=== PATIENT | male | born 1945 | race Caucasian/White ===

== ENCOUNTER 2017-12-09 13:24 | Inpatient (IN) | payer MEDICARE, BC ==
[~2017-12-09] VITALS: Ht 167.6 cm; Wt 70.4 kg
[2017-12-09] VITALS (8 sets, daily range): BP systolic 115–216; BP diastolic 56–90; PULSE 46–58; RESP 16–18; TEMP 98.1–99.2; O2SAT 95–97
[~2017-12-09 13:24] MED LIST: CALC600T10 PO; CHEL50TA PO; FOSI10TA PO; HYDR10TA65 PO; LACT20SO4 PO; LEXA10TA PO; MAGN400T PO; PRAZ1CAP PO; RIFA550 PO; SPIR50TA21 PO; ZITH200S PO
[2017-12-09] MEDS ORDERED: ZINC50TA2 PO (13:53)
[2017-12-09] MEDS ORDERED: XIFA550T4 PO (13:53)
[2017-12-09] MEDS ORDERED: LISI10TA3 PO (13:53)
[2017-12-09] MEDS ORDERED: MAGO400T2 (13:53)
[2017-12-09] MEDS ORDERED: SODIUM CHLORIDE 0.9% FLUSH 10 ML FLUSH IVF PRN (14:15)
--- NOTE | 2017-12-09 14:31 | PD ---
HPI Chief Complaint: Hypertension Time Seen by Provider: 13:48 Travel History International Travel<30 days: No Contact w/Intl Traveler<30days: No Traveled to known affect area: No History of Present Illness HPI 72-year-old male with a history of hypertension, liver cirrhosis, hepatitis C status post treatment presents emergency department for evaluation of high blood pressure at the recommendation of the walk in clinic that he went to today. Patient states that he was walking in requesting "prazosin for nightmares" when they noticed high blood pressure and send to the emergency department today. Patient says he does have a history of high blood pressure however, did not take his morning dose of blood pressure medication until coming to the emergency department today. Says he feels 'woozy' and 'spacey'. Says he might feel dizzy, lightheaded. Says he has more blurred vision than normal. He denies headache, nausea, vomiting, diarrhea, chest pain, shortness breath, abdominal pain, leg pain. Denies ETOH use in 18yrs. Denies tobacco use although has a history of this. PFSH Past Medical History Cancer: No Cardiovascular Problems: Yes (HTN) Cirrhosis: Yes Diabetes: No (BORDERLINE) Endocrine: No Genitourinary: No Hepatitis: Yes (FORMERLY HAD HEP C) Hiatal Hernia: No Hypertension: Yes Immune Disorder: No Musculoskeletal: Yes (BACK FX) Neurologic: No Psychiatric: Yes (PT HAS NIGHTMARES ) Respiratory: No Thyroid Disease: No Influenza Vaccination: Yes Past Surgical History Surgical History: No Previous Surgery Abdominal Surgery: No AICD: No Body Medical Devices: NONE Cardiac Surgery: No Ear Surgery: No Endocrine Surgery: No Eye Surgery: No Genitourinary Surgery: No Joint Replacement: No Oral Surgery: No Pacemaker: No Thoracic Surgery: No Social History Alcohol Use: No (SOBER 18 YEARS) Tobacco Use: No Substance Use: No (HX POT) Allergies-Medications (Allergen,Severity, Reaction): Coded Allergies: acetaminophen (Unverified Allergy, Severe, LIVER/HEP C, 12/09/17) bupropion (Unverified Allergy, Severe, Confusion, 12/09/17) Reported Meds & Prescriptions Reported Meds & Active Scripts Active Reported Lisinopril 10 Mg Tab 10 Mg PO DAILY Zinc Gluconate 50 Mg Tab 50 Mg PO DAILY Magox 400 (Magnesium Oxide) 400 Mg Tablet Xifaxan (Rifaximin) 550 Mg Tab 550 Mg PO Q12HR Review of Systems Except as stated in HPI: all other systems reviewed are Neg Physical Exam Narrative GENERAL: WD, WN in NAD SKIN: Focused skin assessment warm/dry. HEAD: Atraumatic. Normocephalic. EYES: Pupils equal and round. No scleral icterus. No injection or drainage. ENT: No nasal bleeding or discharge. Mucous membranes pink and moist. NECK: Trachea midline. No JVD. CARDIOVASCULAR: Regular rate and rhythm. No murmur appreciated. RESPIRATORY: No accessory muscle use. Clear to auscultation. Breath sounds equal bilaterally. GASTROINTESTINAL: Abdomen soft, non-tender, nondistended. Hepatic and splenic margins not palpable. MUSCULOSKELETAL: No obvious deformities. No clubbing. No cyanosis. No edema. NEUROLOGICAL: Awake and alert. No obvious cranial nerve deficits. Motor grossly within normal limits. Normal speech. PSYCHIATRIC: Appropriate mood and affect; insight and judgment normal. Data Data Last Documented VS Vital Signs Date Time Temp Pulse Resp B/P (MAP) Pulse Ox O2 Delivery O2 Flow Rate FiO2 12/09/17 18:15 55 115/62 (79) 12/09/17 15:58 16 95 Room Air 12/09/17 13:26 99.2 Orders Orders Complete Blood Count With Diff (12/09/17 14:09) Comprehensive Metabolic Panel (12/09/17 14:09) Prothrombin Time / Inr (Pt) (12/09/17 14:09) Act Partial Throm Time (Ptt) (12/09/17 14:09) Ct Brain W/O Iv Contrast(Rout) (12/09/17 14:09) Ecg Monitoring (12/09/17 14:09) Iv Access Insert/Monitor (12/09/17 14:09) Sodium Chloride 0.9% Flush (Ns Flush) (12/09/17 14:15) Troponin I (12/09/17 14:09) Ammonia (12/09/17 14:09) Ckmb (Isoenzyme) Profile (12/09/17 14:09) Urinalysis - C+S If Indicated (12/09/17 14:11) Chest, Single Ap (12/09/17 ) CKMB (12/09/17 14:23) CKMB% (12/09/17 14:23) Mri Brain W&W/O Contrast (12/09/17 ) Nicardipine Inj (Cardene Inj) (12/09/17 16:00) Electrocardiogram (12/09/17 ) Admit Order (Ed Use Only) (12/09/17 19:30) Nicardipine Inj (Cardene Inj) (12/09/17 19:45) Lactulose Liq (Lactulose Liq) (12/09/17 21:00) Admit To Inpatient (12/09/17 ) Vital Signs (Adult) Q4H (12/09/17 19:45) Activity Oob With Assistance (12/09/17 19:45) Outside Machinist Supervisor / Telemetry .CONTINUOUS (12/09/17 19:45) Intake + Output BING.QSHIFT (12/09/17 19:45) Diet Heart Healthy (12/10/17 Breakfast) Sodium Chloride 0.9% Flush (Ns Flush) (12/09/17 19:45) Sodium Chloride 0.9% Flush (Ns Flush) (12/09/17 21:00) Ondansetron Inj (Zofran Inj) (12/09/17 19:45) Comprehensive Metabolic Panel (12/10/17 06:00) Complete Blood Count With Diff (12/10/17 06:00) Pharmacologic Contraindication (12/09/17 19:45) Oxycodone (Roxicodone) (12/09/17 19:45) Oxycodone (Roxicodone) (12/09/17 19:45) Docusate Sodium-Senna (Kasey-Colace) (12/09/17 21:00) Magnesium Hydroxide Liq (Milk Of Magnesi (12/09/17 19:45) Sennosides (Senokot) (12/09/17 19:45) Bisacodyl Supp (Dulcolax Supp) (12/09/17 19:45) Lactulose Liq (Lactulose Liq) (12/09/17 19:45) Inpatient Certification (12/09/17 ) Lisinopril (Prinivil) (12/10/17 09:00) Rifaximin (Xifaxan) (12/09/17 21:00) Labs Laboratory Tests Test 12/09/17 14:23 White Blood Count 5.7 TH/MM3 Red Blood Count 4.47 MIL/MM3 Hemoglobin 14.0 GM/DL Hematocrit 40.0 % Mean Corpuscular Volume 89.5 FL Mean Corpuscular Hemoglobin 31.3 PG Mean Corpuscular Hemoglobin Concent 35.0 % Red Cell Distribution Width 14.7 % Platelet Count 99 TH/MM3 Mean Platelet Volume 8.0 FL Neutrophils (%) (Auto) 70.0 % Lymphocytes (%) (Auto) 16.2 % Monocytes (%) (Auto) 6.4 % Eosinophils (%) (Auto) 7.1 % Basophils (%) (Auto) 0.3 % Neutrophils # (Auto) 4.0 TH/MM3 Lymphocytes # (Auto) 0.9 TH/MM3 Monocytes # (Auto) 0.4 TH/MM3 Eosinophils # (Auto) 0.4 TH/MM3 Basophils # (Auto) 0.0 TH/MM3 CBC Comment AUTO DIFF Differential Comment AUTO DIFF CONFIRMED Platelet Estimate LOW Platelet Morphology Comment NORMAL Ovalocytes 1+ Prothrombin Time 12.0 SEC Prothromb Time International Ratio 1.2 RATIO Activated Partial Thromboplast Time 27.6 SEC Urine Color YELLOW Urine Turbidity CLEAR Urine pH 5.5 Urine Specific [place] 1.020 Urine Protein TRACE mg/dL Urine Glucose (UA) NEG mg/dL Urine Ketones NEG mg/dL Urine Occult Blood SMALL Urine Nitrite NEG Urine Bilirubin NEG Urine Urobilinogen LESS THAN 2.0 MG/DL Urine Leukocyte Esterase NEG Urine RBC 1 /hpf Urine WBC LESS THAN 1 /hpf Urine Squamous Epithelial Cells <1 /hpf Urine Mucus FEW /lpf Microscopic Urinalysis Comment CULT NOT INDICATED Blood Urea Nitrogen 19 MG/DL Creatinine 0.96 MG/DL Random Glucose 188 MG/DL Total Protein 6.6 GM/DL Albumin 3.3 GM/DL Calcium Level 8.0 MG/DL Alkaline Phosphatase 124 U/L Aspartate Amino Transf (AST/SGOT) 55 U/L Alanine Aminotransferase (ALT/SGPT) 56 U/L Total Bilirubin 0.9 MG/DL Sodium Level 140 MEQ/L Potassium Level 3.7 MEQ/L Chloride Level 106 MEQ/L Carbon Dioxide Level 26.4 MEQ/L Anion Gap 8 MEQ/L Estimat Glomerular Filtration Rate 77 ML/MIN Ammonia 53 MCMOL/L Total Creatine Kinase 138 U/L Creatine Kinase MB 3.5 NG/ML Troponin I LESS THAN 0.02 NG/ML MDM Medical Decision Making Medical Screen Exam Complete: Yes Emergency Medical Condition: Yes Differential Diagnosis TIA, CVA, UTI, hepatic encephalopathy, accelerated hypertension, hypertensive emergency, hypertensive urgency Narrative Course 72y male presents to the ED at the request of the walk-in clinic for elevated blood pressure. Pt went to the walk in clinic to request medication to help him sleep. They apparently found that his blood pressure was very elevated, then sent him to the ED for eval. He complains of some blurred vision, feeling 'woozy '. Denies chest pain, headache, neck pain, shortness of breath, abdominal pain, back pain, leg pain. Vital signs demonstrate an elevated blood pressure at 216/88, HR 47-60, [id number] Physical exam findings demonstrate a 72-year-old male, well-developed, well- nourished in no acute distress. He has a mild resting tremor. No neuro deficits. Labs and imaging studies ordered. Cardene drip initiated with good response of the pressure. This drip was discontinued at a blood pressure of systolic of 115 (around 615p) CBC & BMP Diagram 12/09/17 14:23 Total Protein 6.6, Albumin 3.3 L, Calcium Level 8.0 L, Alkaline Phosphatase 124 H, Aspartate Amino Transf (AST/SGOT) 55 H, Alanine Aminotransferase (ALT/SGPT) 56, Total Bilirubin 0.9 Ammonia 53, cardiac enzymes negative Urinalysis noncontributory Last Impressions Head CT 12/09/17 1409 Signed Impressions: Service Date/Time: Saturday, December 09, 2017 14:51 - CONCLUSION: 1. Asymmetry of the occipital horns of the lateral ventricles with a slitlike configuration on the right. While this may represent some physiologic asymmetry, this area would be in the expected location of the optic tracts and may affect vision if there is in fact pathologic regional edema. As such, I would recommend an MRI of the brain with and without gadolinium for further characterization of this area. 2. Chronic appearing pansinusitis with relative sparing of the left frontal sinus. Mati Bergeron MD Chest X-Ray 12/09/17 0000 Signed Impressions: Service Date/Time: Saturday, December 09, 2017 14:26 - CONCLUSION: The lungs are clear. Michael Johnson MD Brain MRI 12/09/17 0000 Signed Impressions: Service Date/Time: Saturday, December 09, 2017 17:45 - CONCLUSION: Moderate periventricular white matter changes otherwise negative for acute process. There is no mass or edema. Moderate bilateral maxillary sinus disease. Ruben Carter MD FACR After evaluation, patient states that he does feel much better. Blood pressure has increased to systolic 137 after discontinuing cardene. Because of his blurred vision and hypertension, will admit for hypertensive urgency. Elevated ammonia, consider lactulose as he has a history of liver cirrhosis. Diagnosis Primary Impression: Hyperammonemia Additional Impression: Hypertensive urgency Admitting Information Admitting Physician Requests: Admit Condition: Stable Rosa Treviño Dec 09, 2017 14:31
[2017-12-09 15:07] LABS: BASOPHIL % 0.3 % (0.0-2.0); EOSINOPHIL # 0.4 TH/MM3 (0-0.4); EOSINOPHIL % 7.1 % (0.0-4.0); LYMPH % 16.2 % (9.0-44.0); LYMPHOCYTE # 0.9 TH/MM3 (1.0-4.8); MEAN CELL VOLUME 89.5 FL (80.0-100.0); MEAN CORPUSCULAR HEMOGLOBIN 31.3 PG (27.0-34.0); MONO % 6.4 % (0.0-8.0); MONOCYTE # 0.4 TH/MM3 (0-0.9); PLATELET COUNT 99 TH/MM3 (150-450); RED BLOOD COUNT 4.47 MIL/MM3 (4.50-5.90); RED CELL DISTRIBUTION WIDTH 14.7 % (11.6-17.2); WHITE BLOOD COUNT 5.7 TH/MM3 (4.0-11.0)
[2017-12-09 15:16] LABS: INTERNATIONAL NORMALIZED RATIO 1.2 RATIO
--- NOTE | 2017-12-09 15:18 | RADRPT ---
EXAM DATE/TIME: 12/09/2017 14:26 [facility] COMPARISON: CHEST PA & LAT, March 17, 2016, 15:24. INDICATIONS : Hypertension MEDICAL HISTORY : Hypertension. SURGICAL HISTORY : None. ENCOUNTER: Initial ACUITY: 1 day PAIN SCORE: 0/10 LOCATION: Bilateral chest FINDINGS: A single view of the chest demonstrates the lungs to be symmetrically aerated without evidence of mas s, infiltrate or effusion. The cardiomediastinal contours are unremarkable. Osseous structures are intact. CONCLUSION: The lungs are clear. Michael Johnson MD on December 09, 2017 at 15:15 Board Certified Radiologist. This report was verified electronically.
[2017-12-09 15:22] LABS: BILIRUBIN, URINE NEG (NEG); BLOOD, URINE SMALL (NEG); GLUCOSE,URINE NEG (NEG); KETONE, URINE NEG (NEG); MUCUS URINE FEW /lpf (OCC); NITRITE,URINE NEG (NEG); PH, URINE 5.5 (5.0-8.5); SQUAMOUS EPITHELIAL CELL URINE <1 /hpf (0-5); URINE COLOR YELLOW (YELLW/STRAW); URINE LEUKOCYTE ESTERASE NEG (NEG)
[2017-12-09 15:33] LABS: ALBUMIN 3.3 GM/DL (3.4-5.0); ALT (GPT) 56 U/L (12-78); AST (GOT) 55 U/L (15-37); BICARBONATE 26.4 MEQ/L (21.0-32.0); BLOOD UREA NITROGEN 19 MG/DL (7-18); CHLORIDE 106 MEQ/L (98-107); CREATININE 0.96 MG/DL (0.60-1.30); GLOMERULAR FILTRATION RATE 77 ML/MIN (>89); GLUCOSE,RANDOM 188 MG/DL (74-106); SODIUM (NA) 140 MEQ/L (136-145)
[2017-12-09 15:37] LABS: ALKALINE PHOSPHATASE 124 U/L (45-117); TOTAL BILIRUBIN ADULT 0.9 MG/DL (0.2-1.0); TOTAL PROTEIN 6.6 GM/DL (6.4-8.2); TROPONIN I LESS THAN 0.02 NG/ML (0.02-0.05)
--- NOTE | 2017-12-09 15:45 | RADRPT ---
EXAM DATE/TIME: 12/09/2017 14:51 [facility] COMPARISON: No previous studies available for comparison. INDICATIONS : Hypertension, blurred vision. RADIATION DOSE: 56.35 CTDIvol (mGy) MEDICAL HISTORY : Hypertension. SURGICAL HISTORY : None. ENCOUNTER: Initial ACUITY: 1 day PAIN SCALE: 0/10 LOCATION: cranial TECHNIQUE: Multiple contiguous axial images were obtained of the head. Using automated exposure control and adj ustment of the mA and/or kV according to patient size, radiation dose was kept as low as reasonably a chievable to obtain optimal diagnostic quality images. DICOM format image data is available electro nically for review and comparison. FINDINGS: CEREBRUM: Asymmetry of the occipital horns of the lateral ventricles with a slitlike ventricle on the right. N o evidence of midline shift, mass lesion, hemorrhage or acute infarction. No extra-axial fluid colle ctions are seen. POSTERIOR FOSSA: The cerebellum and brainstem are intact. The 4th ventricle is midline. The cerebellopontine angle i s unremarkable. EXTRACRANIAL: The visualized portion of the orbits is intact. Pansinusitis with relative sparing of the left fronta l. SKULL: The calvaria is intact. No evidence of skull fracture. CONCLUSION: 1. Asymmetry of the occipital horns of the lateral ventricles with a slitlike configuration on the ri ght. While this may represent some physiologic asymmetry, this area would be in the expected location of the optic tracts and may affect vision if there is in fact pathologic regional edema. As such, I would recommend an MRI of the brain with and without gadolinium for further characterization of this area. 2. Chronic appearing pansinusitis with relative sparing of the left frontal sinus. Mati Bergeron MD on December 09, 2017 at 15:36 Board Certified Radiologist. This report was verified electronically.
[2017-12-09] MEDS ORDERED: niCARdipine INJ 25 MG in SODIUM CHLOR 0.9% 250 ML INJ 240 ML IV PRN ×2 (16:00→19:45)
[2017-12-09 16:12] LABS: OVALOCYTES 1+ (NORMAL)
--- NOTE | 2017-12-09 19:02 | PD ---
Physical Exam Date Seen by Provider: Dec 09, 2017 Time Seen by Provider: 12:50 Narrative I, Dr. De Souza, have reviewed the advance practice practitioner's documentation and am in agreement, met with the patient face to face, made the diagnosis, and the medical decision making was done by me. *My assessment and Findings: Patient seen and evaluated PA, please see PA note for further details. He is here with dizziness, fairly elevated blood pressures. He had tried to take his own blood pressure medication at home before he came in. Patient is initiated on IV blood pressure control in the ER. Laboratory Tests Test 12/09/17 14:23 Red Blood Count 4.47 MIL/MM3 (4.50-5.90) Platelet Count 99 TH/MM3 (150-450) Eosinophils (%) (Auto) 7.1 % (0.0-4.0) Lymphocytes # (Auto) 0.9 TH/MM3 (1.0-4.8) Platelet Estimate LOW (NORMAL) Ovalocytes 1+ (NORMAL) Prothrombin Time 12.0 SEC (9.8-11.6) Urine Occult Blood SMALL (NEG) Urine Mucus FEW /lpf (OCC) Blood Urea Nitrogen 19 MG/DL (7-18) Random Glucose 188 MG/DL (74-106) Albumin 3.3 GM/DL (3.4-5.0) Calcium Level 8.0 MG/DL (8.5-10.1) Alkaline Phosphatase 124 U/L (45-117) Aspartate Amino Transf (AST/SGOT) 55 U/L (15-37) Estimat Glomerular Filtration Rate 77 ML/MIN (>89) Ammonia 53 MCMOL/L (11-32) Troponin I LESS THAN 0.02 NG/ML Last [address] 12/09/17 1409 Signed Impressions: Service Date/Time: Saturday, December 09, 2017 14:51 - CONCLUSION: 1. Asymmetry of the occipital horns of the lateral ventricles with a slitlike configuration on the right. While this may represent some physiologic asymmetry, this area would be in the expected location of the optic tracts and may affect vision if there is in fact pathologic regional edema. As such, I would recommend an MRI of the brain with and without gadolinium for further characterization of this area. 2. Chronic appearing pansinusitis with relative sparing of the left frontal sinus. Mati Bergeron MD Chest X-Ray 12/09/17 0000 Signed Impressions: Service Date/Time: Saturday, December 09, 2017 14:26 - CONCLUSION: The lungs are clear. Michael Johnson MD Due to fairly abnormal CT the brain, MRI was ordered for further evaluation. Plan would be to admit the patient for hypertensive urgency, pending MRI to see if there is any other acute processes. Data Data Last Documented VS Vital Signs Date Time Temp Pulse Resp B/P (MAP) Pulse Ox O2 Delivery O2 Flow Rate FiO2 12/09/17 18:15 55 115/62 (79) 12/09/17 15:58 16 95 Room Air 12/09/17 13:26 99.2 Orders Orders Complete Blood Count With Diff (12/09/17 14:09) Comprehensive Metabolic Panel (12/09/17 14:09) Prothrombin Time / Inr (Pt) (12/09/17 14:09) Act Partial Throm Time (Ptt) (12/09/17 14:09) Ct Brain W/O Iv Contrast(Rout) (12/09/17 14:09) Ecg Monitoring (12/09/17 14:09) Iv Access Insert/Monitor (12/09/17 14:09) Sodium Chloride 0.9% Flush (Ns Flush) (12/09/17 14:15) Troponin I (12/09/17 14:09) Ammonia (12/09/17 14:09) Ckmb (Isoenzyme) Profile (12/09/17 14:09) Urinalysis - C+S If Indicated (12/09/17 14:11) Chest, Single Ap (12/09/17 ) CKMB (12/09/17 14:23) CKMB% (12/09/17 14:23) Mri Brain W&W/O Contrast (12/09/17 ) Nicardipine Inj (Cardene Inj) (12/09/17 16:00) Labs Laboratory Tests Test 12/09/17 14:23 White Blood Count 5.7 TH/MM3 Red Blood Count 4.47 MIL/MM3 Hemoglobin 14.0 GM/DL Hematocrit 40.0 % Mean Corpuscular Volume 89.5 FL Mean Corpuscular Hemoglobin 31.3 PG Mean Corpuscular Hemoglobin Concent 35.0 % Red Cell Distribution Width 14.7 % Platelet Count 99 TH/MM3 Mean Platelet Volume 8.0 FL Neutrophils (%) (Auto) 70.0 % Lymphocytes (%) (Auto) 16.2 % Monocytes (%) (Auto) 6.4 % Eosinophils (%) (Auto) 7.1 % Basophils (%) (Auto) 0.3 % Neutrophils # (Auto) 4.0 TH/MM3 Lymphocytes # (Auto) 0.9 TH/MM3 Monocytes # (Auto) 0.4 TH/MM3 Eosinophils # (Auto) 0.4 TH/MM3 Basophils # (Auto) 0.0 TH/MM3 CBC Comment AUTO DIFF Differential Comment AUTO DIFF CONFIRMED Platelet Estimate LOW Platelet Morphology Comment NORMAL Ovalocytes 1+ Prothrombin Time 12.0 SEC Prothromb Time International Ratio 1.2 RATIO Activated Partial Thromboplast Time 27.6 SEC Urine Color YELLOW Urine Turbidity CLEAR Urine pH 5.5 Urine Specific [place] 1.020 Urine Protein TRACE mg/dL Urine Glucose (UA) NEG mg/dL Urine Ketones NEG mg/dL Urine Occult Blood SMALL Urine Nitrite NEG Urine Bilirubin NEG Urine Urobilinogen LESS THAN 2.0 MG/DL Urine Leukocyte Esterase NEG Urine RBC 1 /hpf Urine WBC LESS THAN 1 /hpf Urine Squamous Epithelial Cells <1 /hpf Urine Mucus FEW /lpf Microscopic Urinalysis Comment CULT NOT INDICATED Blood Urea Nitrogen 19 MG/DL Creatinine 0.96 MG/DL Random Glucose 188 MG/DL Total Protein 6.6 GM/DL Albumin 3.3 GM/DL Calcium Level 8.0 MG/DL Alkaline Phosphatase 124 U/L Aspartate Amino Transf (AST/SGOT) 55 U/L Alanine Aminotransferase (ALT/SGPT) 56 U/L Total Bilirubin 0.9 MG/DL Sodium Level 140 MEQ/L Potassium Level 3.7 MEQ/L Chloride Level 106 MEQ/L Carbon Dioxide Level 26.4 MEQ/L Anion Gap 8 MEQ/L Estimat Glomerular Filtration Rate 77 ML/MIN Ammonia 53 MCMOL/L Total Creatine Kinase 138 U/L Creatine Kinase MB 3.5 NG/ML Troponin I LESS THAN 0.02 NG/ML [facility] Medical Record Reviewed: Yes Supervised Visit with SHAUN: Yes Diagnosis Primary Impression: Hyperammonemia Additional Impression: Accelerated hypertension Admitting Information Admitting Physician Requests: Admit Condition: Stable Dejuan De Souza MD Dec 09, 2017 19:02
--- NOTE | 2017-12-09 19:08 | RADRPT ---
EXAM DATE/TIME: 12/09/2017 17:45 [facility] COMPARISON: CT BRAIN W/O CONTRAST, December 09, 2017, 14:51. INDICATIONS : Blurred vision, abnormal CT. CONTRAST: 14 cc Omniscan (gadodiamide) IV MEDICAL HISTORY : Hepatitis C. SURGICAL HISTORY : None. ENCOUNTER: Initial ACUITY: 1 day PAIN SCORE: 0/10 LOCATION: cranial TECHNIQUE: Multiplanar, multisequence MRI of the brain was performed both prior to and following the administrat ion of paramagnetic contrast. FINDINGS: Marked periventricular white matter changes are evident. Ventricular size is appropriate. 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 There are no extra-axial fluid collection appreciated Optic chiasm appears unremarkable. Posterior fossa appears normal There is no restricted diffusion There is no abnormal contrast enhancement Posterior fossa appears normal Moderate maxillary sinus disease bilaterally worse on the right than the left. CONCLUSION: Moderate periventricular white matter changes otherwise negative for acute process. There is no mass or edema. Moderate bilateral maxillary sinus disease. Ruben Carter MD FACR on December 09, 2017 at 19:03 Board Certified Radiologist. This report was verified electronically.
[2017-12-09] MEDS ORDERED: MAGNESIUM HYDROXIDE SUSP 30 ML CUP PO PRN (19:45)
[2017-12-09] MEDS ORDERED: SENNOSIDES 8.6 MG TAB PO PRN (19:45)
[2017-12-09] MEDS ORDERED: ONDANSETRON HCL 4 MG/2 ML VIAL IVP PRN (19:45)
[2017-12-09] MEDS ORDERED: BISACODYL 10 MG SUPP RECTAL PRN (19:45)
[2017-12-09] MEDS ORDERED: LACTULOSE SYRUP 20 GM/30 ML CUP PO PRN (19:45)
[2017-12-09] MEDS ORDERED: SODIUM CHLORIDE 0.9% FLUSH 10 ML FLUSH IV FLUSH PRN (19:45)
--- NOTE | 2017-12-09 19:53 | HHI.HP ---
HPI Service [facility] Primary Care Physician Leigh Ann Gomez MD Admission Diagnosis hyperammonemia, hypertensive urgency Diagnoses: (1) Hypertensive urgency Diagnosis: Principal (2) Cirrhosis Diagnosis: Principal (3) Thrombocytopenia Diagnosis: Principal Travel History International Travel<30 Days: No Contact w/Intl Traveler <30 Da: No Traveled to Known Affected Are: No History of Present Illness This is a 72-year-old male with a PMH of HTN, Hepatitis C and Cirrhosis who was referred to the ER by Urgent Care for evaluation of elevated BP. Per patient, he's had ongoing nightmares for several weeks and went to Urgent Care to get evaluated as he wants to start Prazosin. Pt noted to have BP 220's systolic and sent to ER. Does note some dizziness/lightheadedness today, but no chest pain, SOB, nausea, vomiting or diarrhea. On Lisinopril 10mg qd, reports compliance w/ medications. On arrival, BP 216/88, HR 55, O2 sat 95% RA, Temp 99.2. CBC essentially at baseline, platelets 99, previously 106 on 03/17/2016. Chemistry essentially at baseline. Troponin negative. Ammonia 53. INR 1.2. UA negative. CT Head with asymmetry of occipital horns of lateral ventricles, recommendation for MRI. MRI Brain with moderate periventricular white matter changes, no mass or edema, no acute findings. CXR negative. Placed on Cardene gtt in ER on arrival, BP currently 115/62, HR 55. No complaints at this time. Review of Systems Except as stated in HPI: all other systems reviewed are Neg ROS: 14 point review of systems otherwise negative. Past Family Social History Past Medical History PMH: HTN, Hepatitis C and Cirrhosis Past Surgical History PAST SURGICAL HISTORY: None Allergies: Coded Allergies: acetaminophen (Unverified Allergy, Severe, LIVER/HEP C, 12/09/17) bupropion (Unverified Allergy, Severe, Confusion, 12/09/17) Family History PAST FAMILY HISTORY: Reviewed. No h/o DM or CAD Social History PAST SOCIAL HISTORY: History of alcohol abuse, quit 18 years ago. Negative for tobacco or drugs. Physical Exam Vital Signs Vital Signs Date Time Temp Pulse Resp B/P (MAP) Pulse Ox O2 Delivery O2 Flow Rate FiO2 12/09/17 18:15 55 115/62 (79) 12/09/17 17:49 58 136/56 (82) 12/09/17 17:02 47 194/90 12/09/17 15:58 49 16 194/90 (124) 95 Room Air 12/09/17 13:49 50 16 190/80 (116) 95 Room Air 12/09/17 13:26 99.2 55 18 216/88 (130) 95 Physical Exam PE: GENERAL: Very pleasant middle-aged white male in no acute distress, sitting up in bed having dinner.. HEENT: PERRLA, EOMI. No scleral icterus or conjunctival pallor. No lid lag or facial droop. CARDIOVASCULAR: Regular rate and rhythm. No obvious murmurs to auscultation. No chest tenderness to palpation. RESPIRATORY: No obvious rhonchi or wheezing. Clear to auscultation. Breath sounds equal bilaterally. GASTROINTESTINAL: Abdomen soft, non-tender, nondistended. BS normal. MUSCULOSKELETAL: Extremities without clubbing, cyanosis, or edema. No obvious deformities. NEUROLOGICAL: Awake, alert and oriented x4. No focal neurologic deficits. Moving both upper and lower extremities spontaneously. Laboratory Laboratory Tests Test 12/09/17 14:23 White Blood Count 5.7 Red Blood Count 4.47 Hemoglobin 14.0 Hematocrit 40.0 Mean Corpuscular Volume 89.5 Mean Corpuscular Hemoglobin 31.3 Mean Corpuscular Hemoglobin Concent 35.0 Red Cell Distribution Width 14.7 Platelet Count 99 Mean Platelet Volume 8.0 Neutrophils (%) (Auto) 70.0 Lymphocytes (%) (Auto) 16.2 Monocytes (%) (Auto) 6.4 Eosinophils (%) (Auto) 7.1 Basophils (%) (Auto) 0.3 Neutrophils # (Auto) 4.0 Lymphocytes # (Auto) 0.9 Monocytes # (Auto) 0.4 Eosinophils # (Auto) 0.4 Basophils # (Auto) 0.0 CBC Comment AUTO DIFF Differential Comment AUTO DIFF CONFIRMED Platelet Estimate LOW Platelet Morphology Comment NORMAL Ovalocytes 1+ Prothrombin Time 12.0 Prothromb Time International Ratio 1.2 Activated Partial Thromboplast Time 27.6 Urine Color YELLOW Urine Turbidity CLEAR Urine pH 5.5 Urine Specific [place] 1.020 Urine Protein TRACE Urine Glucose (UA) NEG Urine Ketones NEG Urine Occult Blood SMALL Urine Nitrite NEG Urine Bilirubin NEG Urine Urobilinogen LESS THAN 2.0 Urine Leukocyte Esterase NEG Urine RBC 1 Urine WBC LESS THAN 1 Urine Squamous Epithelial Cells <1 Urine Mucus FEW Microscopic Urinalysis Comment CULT NOT INDICATED Blood Urea Nitrogen 19 Creatinine 0.96 Random Glucose 188 Total Protein 6.6 Albumin 3.3 Calcium Level 8.0 Alkaline Phosphatase 124 Aspartate Amino Transf (AST/SGOT) 55 Alanine Aminotransferase (ALT/SGPT) 56 Total Bilirubin 0.9 Sodium Level 140 Potassium Level 3.7 Chloride Level 106 Carbon Dioxide Level 26.4 Anion Gap 8 Estimat Glomerular Filtration Rate 77 Ammonia 53 Total Creatine Kinase 138 Creatine Kinase MB 3.5 Troponin I LESS THAN 0.02 Result Diagram: 12/09/17 1423 12/09/17 142 Alida VTE Risk Assessment Alida VTE Risk Assessment: No/Low Risk (score <= 1) Caprini Risk Assessment Model Point Value = 1 Point Value = 2 Point Value = 3 Point Value = 5 Age 41-60 Minor surgery BMI > 25 kg/m2 Swollen legs Varicose veins or History of unexplained or recurrent spontaneous Oral contraceptives or hormone replacement Sepsis (< 1 month) Serious lung disease, including pneumonia (< 1 month) Abnormal pulmonary function Acute myocardial infarction Congestive heart failure (< 1 month) History of inflammatory bowel disease Medical patient at bed rest Age 61-74 Arthroscopic surgery Major open surgery (> 45 min) Laparoscopic surgery (> 45 min) Malignancy Confined to bed (> 72 hours) Immobilizing plaster cast Central venous access Age >= 75 History of VTE Family history of VTE Factor V Leiden Prothrombin [id number] Lupus anticoagulant Anticardiolipin antibodies Elevated serum homocysteine Heparin-induced thrombocytopenia Other congenital or acquired thrombophilia Stroke (< 1 month) Elective arthroplasty Hip, pelvis, or leg fracture Acute spinal cord injury (< 1 month) Prophylaxis Regimen Total Risk Factor Score Risk Level Prophylaxis Regimen 0-1 Low Early ambulation 2 Moderate Order ONE of the following: *Sequential Compression Device (SCD) *Heparin 5000 units SQ BID 3-4 Higher Order ONE of the following medications: *Heparin 5000 units SQ TID *Enoxaparin/Lovenox 40 mg SQ daily (WT < 150 kg, CrCl > 30 mL/min) *Enoxaparin/Lovenox 30 mg SQ daily (WT < 150 kg, CrCl > 10-29 mL/min) *Enoxaparin/Lovenox 30 mg SQ BID (WT < 150 kg, CrCl > 30 mL/min) AND/OR *Sequential Compression Device (SCD) 5 or more Highest Order ONE of the following medications: *Heparin 5000 units SQ TID (Preferred with Epidurals) *Enoxaparin/Lovenox 40 mg SQ daily (WT < 150 kg, CrCl > 30 mL/min) *Enoxaparin/Lovenox 30 mg SQ daily (WT < 150 kg, CrCl > 10-29 mL/min) *Enoxaparin/Lovenox 30 mg SQ BID (WT < 150 kg, CrCl > 30 mL/min) AND *Sequential Compression Device (SCD) Assessment and Plan Problem List: (1) Hypertensive urgency ICD Code: I16.0 - Hypertensive urgency (2) Cirrhosis ICD Code: K74.60 - Unspecified cirrhosis of liver (3) Thrombocytopenia ICD Code: D69.6 - Thrombocytopenia, unspecified Assessment and Plan A/P: 1. Hypertensive Urgency: BP 216/88, HR 55 on arrival, started on Cardene gtt in ER. On Lisinopril 10mg qd at home, reports compliance w/ medications. Wean off Cardene, resume home medications, monitor BP, add antihypertensives for persistently elevated BP. Caution w/ bradycardia. Pt inquiring about starting on Prazosin as h/o Nightmares, recommended starting as outpatient since dosage will need to be monitored closely and adjusted. 2. Cirrhosis: Chronic. H/o Hepatitis C and h/o Alcohol Abuse. On Rifaximin. Ammonia 53, no mental status changes, will monitor. Lactulose as needed. 3. Thrombocytopenia: Acute on Chronic. Platelets 99, previously 106 on . No active bleeding at this time, will monitor closely. Repeat labs in am. 4. DVT Prophylaxis: SCD/Teds. 5. Social work for d/c planning as needed. 6. Case discussed at length w/ ER physician, labs/records/imaging reviewed by me. Physician Certification 2 Midnight Certification Type: Admission for Inpatient Services Order for Inpatient Services The services are ordered in accordance with Medicare regulations or non- Medicare payer requirements, as applicable. In the case of services not specified as inpatient-only, they are appropriately provided as inpatient services in accordance with the 2-midnight benchmark. Estimated LOS (days): 2 days is the estimated time the patient will need to remain in the hospital, assuming treatment plan goals are met and no additional complications. Post-Hospital Plan: Not yet determined Lizbeth Rodriguez MD Dec 09, 2017 19:53
[2017-12-09] MEDS: RIFAXIMIN 550 MG TAB PO SCH (20:40)
[2017-12-09] MEDS: LACTULOSE SYRUP 20 GM/30 ML CUP PO SCH (20:40)
[2017-12-09] MEDS: DOCUSATE SODIUM 50 MG/SENNA 8.6 MG TAB PO SCH (20:40)
[2017-12-09] MEDS: SODIUM CHLORIDE 0.9% FLUSH 10 ML FLUSH IV FLUSH SCH (20:40)
[2017-12-09] MEDS ORDERED: GADODIAMIDE PF 287 MG/ML 20 ML VIAL (for RAD MRI) IVCONTRAST ONE (21:01)
[2017-12-10] VITALS (27 sets, daily range): BP systolic 156–177; BP diastolic 76–89; PULSE 44–68; RESP 16–18; TEMP 97.7–98.4; O2SAT 94–98
[2017-12-10 07:02] LABS: AUTOMATED NEUTROPHIL # 3.3 TH/MM3 (1.8-7.7); BASOPHIL # 0.2 TH/MM3 (0-0.2); EOSINOPHIL # 0.4 TH/MM3 (0-0.4); EOSINOPHIL % 7.7 % (0.0-4.0); HEMATOCRIT 38.9 % (39.0-51.0); HEMOGLOBIN 13.6 GM/DL (13.0-17.0); LYMPH % 18.8 % (9.0-44.0); MEAN CELL VOLUME 89.7 FL (80.0-100.0); MEAN CORPUSCULAR HEMOGLOBIN 31.5 PG (27.0-34.0); MEAN CORPUSCULAR HGB CONC 35.1 % (32.0-36.0); MEAN PLATELET VOLUME 8.4 FL (7.0-11.0); MONO % 6.2 % (0.0-8.0); MONOCYTE # 0.3 TH/MM3 (0-0.9); NEUT % 64.3 % (16.0-70.0); PLATELET COUNT 79 TH/MM3 (150-450); RED BLOOD COUNT 4.33 MIL/MM3 (4.50-5.90); RED CELL DISTRIBUTION WIDTH 14.6 % (11.6-17.2); WHITE BLOOD COUNT 5.1 TH/MM3 (4.0-11.0)
[2017-12-10 07:04] LABS: ALBUMIN 3.1 GM/DL (3.4-5.0); AST (GOT) 52 U/L (15-37); BICARBONATE 25.2 MEQ/L (21.0-32.0); BLOOD UREA NITROGEN 18 MG/DL (7-18); CALCIUM 8.1 MG/DL (8.5-10.1); CHLORIDE 109 MEQ/L (98-107); CREATININE 0.84 MG/DL (0.60-1.30); GLOMERULAR FILTRATION RATE 90 ML/MIN (>89); GLUCOSE,RANDOM 106 MG/DL (74-106); SODIUM (NA) 142 MEQ/L (136-145)
[2017-12-10 07:08] LABS: ALKALINE PHOSPHATASE 120 U/L (45-117); ALT (GPT) 54 U/L (12-78); TOTAL BILIRUBIN ADULT 0.7 MG/DL (0.2-1.0); TOTAL PROTEIN 6.2 GM/DL (6.4-8.2)
[2017-12-10] MEDS: DOCUSATE SODIUM 50 MG/SENNA 8.6 MG TAB PO SCH ×2 (08:38→21:00)
[2017-12-10] MEDS: LACTULOSE SYRUP 20 GM/30 ML CUP PO SCH ×4 (08:38→21:00)
[2017-12-10] MEDS: RIFAXIMIN 550 MG TAB PO SCH ×2 (08:38→20:49)
[2017-12-10] MEDS ORDERED: NON-FORMULARY DRUG (Zinc Gluconate 50 MG) PO SCH (09:00)
[2017-12-10] MEDS ORDERED: LISINOPRIL 10 MG TAB PO SCH (09:00)
[2017-12-10] MEDS: SODIUM CHLORIDE 0.9% FLUSH 10 ML FLUSH IV FLUSH SCH ×2 (09:19→20:49)
[2017-12-10 09:25] LABS: ACANTHOCYTES OCC (NORMAL)
[2017-12-10] MEDS ORDERED: amLODIPine BESYLATE 5 MG TAB PO ONE (13:00)
--- NOTE | 2017-12-10 13:10 | HHI.PR ---
Subjective Remarks This is a 72-year-old male with a PMH of HTN, Hepatitis C and Cirrhosis who was referred to the ER by Urgent Care for evaluation of elevated BP. Per patient, he's had ongoing nightmares for several weeks and went to Urgent Care to get evaluated as he wants to start Prazosin. Pt noted to have BP 220's systolic and sent to ER. Does note some dizziness/lightheadedness today, but no chest pain, SOB, nausea, vomiting or diarrhea. On Lisinopril 10mg qd, reports compliance w/ medications. On arrival, BP 216/88, HR 55, O2 sat 95% RA, Temp 99.2. CBC essentially at baseline, platelets 99, previously 106 on 03/17/2016. Chemistry essentially at baseline. Troponin negative. Ammonia 53. INR 1.2. UA negative. CT Head with asymmetry of occipital horns of lateral ventricles, recommendation for MRI. MRI Brain with moderate periventricular white matter changes, no mass or edema, no acute findings. CXR negative. Placed on Cardene gtt in ER on arrival, BP currently 115/62, HR 55. No complaints at this time. 4-7 WILL NEED MEDICATIONS ADJUSTED DW RN AND PT AND CM INCREASE LISINOPRIL TO 10MG PO BID START NORVASC 5MG PO DAILY TODAY AM LABS IF STABLE DC NEXT 24 TO 48 HOURS Objective Vitals Vital Signs Date Time Temp Pulse Resp B/P (MAP) Pulse Ox O2 Delivery O2 Flow Rate FiO2 12/10/17 12:00 58 12/10/17 11:05 98.2 54 18 156/80 (105) 96 12/10/17 11:05 54 12/10/17 10:00 55 12/10/17 09:00 47 12/10/17 08:35 48 12/10/17 08:35 97.7 48 16 174/86 (115) 95 12/10/17 07:00 44 12/10/17 06:18 46 12/10/17 05:07 52 12/10/17 04:31 97.7 53 170/84 (112) 98 12/10/17 04:00 48 12/10/17 03:00 48 12/10/17 02:00 48 12/10/17 01:00 48 12/10/17 00:00 97.9 50 163/76 (105) 96 12/10/17 00:00 49 12/09/17 22:00 46 12/09/17 20:45 98.1 49 164/80 (108) 97 12/09/17 20:18 54 16 159/70 (99) 95 Room Air 12/09/17 18:15 55 115/62 (79) 12/09/17 17:49 58 136/56 (82) 12/09/17 17:02 47 194/90 12/09/17 15:58 49 16 194/90 (124) 95 Room Air 12/09/17 13:49 50 16 190/80 (116) 95 Room Air 12/09/17 13:26 99.2 55 18 216/88 (130) 95 I/O 12/09/17 12/09/17 12/09/17 12/10/17 12/10/17 12/10/17 07:00 15:00 23:00 07:00 15:00 23:00 Intake Total 720 ml Output Total 300 ml 400 ml Balance -300 ml 320 ml Intake Oral 720 ml Output Urine Total 300 ml 400 ml # Voids 1 Result Diagram: 12/10/17 0446 12/10/17 0446 Other Results Laboratory Tests Test 12/09/17 14:23 12/10/17 04:46 White Blood Count 5.7 TH/MM3 5.1 TH/MM3 Red Blood Count 4.47 MIL/MM3 4.33 MIL/MM3 Hemoglobin 14.0 GM/DL 13.6 GM/DL Hematocrit 40.0 % 38.9 % Mean Corpuscular Volume 89.5 FL 89.7 FL Mean Corpuscular Hemoglobin 31.3 PG 31.5 PG Mean Corpuscular Hemoglobin Concent 35.0 % 35.1 % Red Cell Distribution Width 14.7 % 14.6 % Platelet Count 99 TH/MM3 79 TH/MM3 Mean Platelet Volume 8.0 FL 8.4 FL Neutrophils (%) (Auto) 70.0 % 64.3 % Lymphocytes (%) (Auto) 16.2 % 18.8 % Monocytes (%) (Auto) 6.4 % 6.2 % Eosinophils (%) (Auto) 7.1 % 7.7 % Basophils (%) (Auto) 0.3 % 3.0 % Neutrophils # (Auto) 4.0 TH/MM3 3.3 TH/MM3 Lymphocytes # (Auto) 0.9 TH/MM3 1.0 TH/MM3 Monocytes # (Auto) 0.4 TH/MM3 0.3 TH/MM3 Eosinophils # (Auto) 0.4 TH/MM3 0.4 TH/MM3 Basophils # (Auto) 0.0 TH/MM3 0.2 TH/MM3 CBC Comment AUTO DIFF AUTO DIFF Differential Comment AUTO DIFF CONFIRMED AUTO DIFF CONFIRMED Platelet Estimate LOW Platelet Morphology Comment NORMAL Ovalocytes 1+ Prothrombin Time 12.0 SEC Prothromb Time International Ratio 1.2 RATIO Activated Partial Thromboplast Time 27.6 SEC Urine Color YELLOW Urine Turbidity CLEAR Urine pH 5.5 Urine Specific [place] 1.020 Urine Protein TRACE mg/dL Urine Glucose (UA) NEG mg/dL Urine Ketones NEG mg/dL Urine Occult Blood SMALL Urine Nitrite NEG Urine Bilirubin NEG Urine Urobilinogen LESS THAN 2.0 MG/DL Urine Leukocyte Esterase NEG Urine RBC 1 /hpf Urine WBC LESS THAN 1 /hpf Urine Squamous Epithelial Cells <1 /hpf Urine Mucus FEW /lpf Microscopic Urinalysis Comment CULT NOT INDICATED Blood Urea Nitrogen 19 MG/DL 18 MG/DL Creatinine 0.96 MG/DL 0.84 MG/DL Random Glucose 188 MG/DL 106 MG/DL Total Protein 6.6 GM/DL 6.2 GM/DL Albumin 3.3 GM/DL 3.1 GM/DL Calcium Level 8.0 MG/DL 8.1 MG/DL Alkaline Phosphatase 124 U/L 120 U/L Aspartate Amino Transf (AST/SGOT) 55 U/L 52 U/L Alanine Aminotransferase (ALT/SGPT) 56 U/L 54 U/L Total Bilirubin 0.9 MG/DL 0.7 MG/DL Sodium Level 140 MEQ/L 142 MEQ/L Potassium Level 3.7 MEQ/L 3.6 MEQ/L Chloride Level 106 MEQ/L 109 MEQ/L Carbon Dioxide Level 26.4 MEQ/L 25.2 MEQ/L Anion Gap 8 MEQ/L 8 MEQ/L Estimat Glomerular Filtration Rate 77 ML/MIN 90 ML/MIN Ammonia 53 MCMOL/L Total Creatine Kinase 138 U/L Creatine Kinase MB 3.5 NG/ML Troponin I LESS THAN 0.02 NG/ML Acanthocytes OCC Imaging Last Impressions Head CT 12/09/17 [id number] Signed Impressions: Service Date/Time: Saturday, December 09, 2017 14:51 - CONCLUSION: 1. Asymmetry of the occipital horns of the lateral ventricles with a slitlike configuration on the right. While this may represent some physiologic asymmetry, this area would be in the expected location of the optic tracts and may affect vision if there is in fact pathologic regional edema. As such, I would recommend an MRI of the brain with and without gadolinium for further characterization of this area. 2. Chronic appearing pansinusitis with relative sparing of the left frontal sinus. Mati Bergeron MD Chest X-Ray 12/09/17 0000 Signed Impressions: Service Date/Time: Saturday, December 09, 2017 14:26 - CONCLUSION: The lungs are clear. Michael Johnson MD Brain MRI 12/09/17 0000 Signed Impressions: Service Date/Time: Saturday, December 09, 2017 17:45 - CONCLUSION: Moderate periventricular white matter changes otherwise negative for acute process. There is no mass or edema. Moderate bilateral maxillary sinus disease. Ruben Carter MD FACR Objective Remarks GENERAL: Awake alert and oriented 3 talkative and cooperative SKIN: Warm and dry. HEAD: Atraumatic. Normocephalic. EYES: Pupils equal and round. No scleral icterus. No injection or drainage. Extraocular muscles intact wearing glasses ENT: No nasal bleeding or discharge. Mucous membranes pink and moist. Tongue is midline NECK: Trachea midline. No JVD. Supple CARDIOVASCULAR: Regular rate and rhythm. S1-S2 no S3 or S4 RESPIRATORY: No accessory muscle use. Clear to auscultation. Breath sounds equal bilaterally. GASTROINTESTINAL: Abdomen soft, non-tender, nondistended. Hepatic and splenic margins not palpable. MUSCULOSKELETAL: Extremities without clubbing, cyanosis, or edema. No obvious deformities. NEUROLOGICAL: Awake and alert. No obvious cranial nerve deficits. Motor grossly within normal limits. Five out of 5 muscle strength in the arms and legs. Normal speech. PSYCHIATRIC: Appropriate mood and affect; insight and judgment normal. Medications and IVs Current Medications Sodium Chloride (NS Flush) 2 ml UNSCH PRN IVF FLUSH AFTER USING IV ACCESS; Start 12/09/17 at 14:15; Stop 12/10/17 at 06:40; Status DC Nicardipine HCl 25 mg/Sodium Chloride 250 ml @ 50 mls/hr TITRATE PRN IV Blood pressure management Last administered on 12/09/17at 17:02; Start 12/09/17 at 16:00 ; Stop 12/09/17 at 19:49; Status DC Nicardipine HCl 25 mg/Sodium Chloride 250 ml @ 50 mls/hr TITRATE PRN IV BP > 200 SYSTOLIC; Start 12/09/17 at 19:45; Stop 12/09/17 at 19:57; Status DC Lactulose (Lactulose Liq) 30 ml QID PO ; Start 12/09/17 at 21:00 Sodium Chloride (NS Flush) 2 ml UNSCH PRN IV FLUSH FLUSH AFTER USING IV ACCESS ; Start 12/09/17 at 19:45 Sodium Chloride (NS Flush) 2 ml BID IV FLUSH Last administered on 12/10/17at 09: 19; Start 12/09/17 at 21:00 Ondansetron HCl (Zofran Inj) 4 mg Q6H PRN IVP NAUSEA OR VOMITING; Start at 19:45 Oxycodone HCl (Roxicodone) 10 mg Q4H PRN PO PAIN SCALE 6 TO 10; Start 12/09/17 at 19:45 Oxycodone HCl (Roxicodone) 5 mg Q4H PRN PO PAIN SCALE 3 TO 5; Start 12/09/17 at 19:45 Senna/Docusate Sodium (Kasey-Colace) 1 tab BID PO ; Start 12/09/17 at 21:00 Magnesium Hydroxide (Milk Of Magnesia Liq) 30 ml Q12H PRN PO Mild constipation ; Start 12/09/17 at 19:45 Sennosides (Senokot) 17.2 mg Q12H PRN PO Moderate constipation; Start 12/09/17 at 19:45 Bisacodyl (Dulcolax Supp) 10 mg DAILY PRN RECTAL SEVERE CONSITIPATION; Start at 19:45 Lactulose (Lactulose Liq) 30 ml DAILY PRN PO SEVERE CONSITIPATION; Start at 19:45 Lisinopril (Prinivil) 10 mg DAILY PO Last administered on 12/10/17at 09:19; Start 12/10/17 at 09:00 Rifaximin (Xifaxan) 550 mg Q12HR PO ; Start 12/09/17 at 21:00 Non-Formulary Medication 50 mg DAILY PO ; Start 12/10/17 at 09:00; Status UNV Gadodiamide (Omniscan Pf Inj) 14 ml STK-MED ONCE IVCONTRAST Last administered on 12/09/17at 21:01; Start 12/09/17 at 21:01; Stop 12/09/17 at 21:02; Status DC Hydralazine HCl (Apresoline Inj) 10 mg Q6H PRN IV PUSH SEE LABEL COMMENTS; Start 12/10/17 at 06:45 A/P Problem List: (1) Hypertensive urgency ICD Code: I16.0 - Hypertensive urgency (2) Cirrhosis ICD Code: K74.60 - Unspecified cirrhosis of liver (3) Thrombocytopenia ICD Code: D69.6 - Thrombocytopenia, unspecified Assessment and Plan 1. Hypertensive Urgency: BP 216/88, HR 55 on arrival, started on Cardene gtt in ER. On Lisinopril 10mg qd at home, reports compliance w/ medications. Wean off Cardene, resume home medications, monitor BP, add antihypertensives for persistently elevated BP. Caution w/ bradycardia. Pt inquiring about starting on Prazosin as h/o Nightmares, recommended starting as outpatient since dosage will need to be monitored closely and adjusted. INCREASE LISINOPRIL TO 10MG PO BID-- ADD NORVASC 5MG PO DAILY TODAY 2. Cirrhosis: Chronic. H/o Hepatitis C and h/o Alcohol Abuse. On Rifaximin. Ammonia 53, no mental status changes, will monitor. Lactulose as needed. 3. Thrombocytopenia: Acute on Chronic. Platelets 99, previously 106 on . No active bleeding at this time, will monitor closely. Repeat labs in am. 4. DVT Prophylaxis: SCD/Teds. 5. Social work for d/c planning as needed. IF BLOOD PRESSURE STABLE THEN DC TO HOME TOMORROW Discharge Planning NEXT 24 TO 48 HOURS Ruben Panchal DO Dec 10, 2017 13:10
[2017-12-10] MEDS: hydrALAZINE HCL 20 MG/ML VIAL IV PUSH PRN ×2 (16:28→23:46)
--- NOTE | 2017-12-10 17:16 | EKG ---
Date Performed: 12/09/2017 Time Performed: 19:38:59 PTAGE: 72 years EKG: SINUS BRADYCARDIA WITH FIRST DEGREE AV BLOCK MARKED LEFT AXIS DEVIATION POSSIBLE ANTERIOR M YOCARDIAL INFARCTION Since the previous tracing, no significant change noted ABNORMAL ECG PREVIOUS TRACING : 03/17/2016 15.41 DOCTOR: John Santana Interpretating Date/Time 12/10/2017 17:14:50
[2017-12-10] MEDS: LISINOPRIL 10 MG TAB PO SCH (20:49)
[2017-12-11] VITALS (12 sets, daily range): BP systolic 109–172; BP diastolic 58–85; PULSE 47–64; RESP 18; TEMP 97.5–97.9; O2SAT 95–98
[2017-12-11 07:37] LABS: AUTOMATED NEUTROPHIL # 5.6 TH/MM3 (1.8-7.7); BASOPHIL # 0.1 TH/MM3 (0-0.2); BASOPHIL % 0.8 % (0.0-2.0); EOSINOPHIL # 0.2 TH/MM3 (0-0.4); EOSINOPHIL % 2.5 % (0.0-4.0); HEMOGLOBIN 14.9 GM/DL (13.0-17.0); INTERNATIONAL NORMALIZED RATIO 1.2 RATIO; LYMPH % 10.9 % (9.0-44.0); LYMPHOCYTE # 0.8 TH/MM3 (1.0-4.8); MEAN CELL VOLUME 90.8 FL (80.0-100.0); MEAN CORPUSCULAR HEMOGLOBIN 31.5 PG (27.0-34.0); MEAN CORPUSCULAR HGB CONC 34.7 % (32.0-36.0); MEAN PLATELET VOLUME 7.9 FL (7.0-11.0); MONO % 5.5 % (0.0-8.0); MONOCYTE # 0.4 TH/MM3 (0-0.9); NEUT % 80.3 % (16.0-70.0); PLATELET COUNT 100 TH/MM3 (150-450); PROTHROMBIN TIME - PATIENT 12.1 SEC (9.8-11.6); RED BLOOD COUNT 4.74 MIL/MM3 (4.50-5.90)
[2017-12-11 08:24] LABS: ALBUMIN 3.4 GM/DL (3.4-5.0); AST (GOT) 42 U/L (15-37); BICARBONATE 24.9 MEQ/L (21.0-32.0); BLOOD UREA NITROGEN 20 MG/DL (7-18); CALCIUM 8.2 MG/DL (8.5-10.1); CHLORIDE 107 MEQ/L (98-107); CREATININE 0.98 MG/DL (0.60-1.30); GLOMERULAR FILTRATION RATE 76 ML/MIN (>89); GLUCOSE,RANDOM 161 MG/DL (74-106); MAGNESIUM 2.1 MG/DL (1.5-2.5); SODIUM (NA) 139 MEQ/L (136-145)
[2017-12-11 08:25] LABS: ALT (GPT) 53 U/L (12-78)
[2017-12-11 08:34] LABS: ALKALINE PHOSPHATASE 126 U/L (45-117); FREE T4 0.72 NG/DL (0.76-1.46); PHOSPHORUS 3.3 MG/DL (2.5-4.9); TOTAL PROTEIN 6.8 GM/DL (6.4-8.2)
[2017-12-11] MEDS: LACTULOSE SYRUP 20 GM/30 ML CUP PO SCH ×2 (09:00→13:00)
[2017-12-11] MEDS: DOCUSATE SODIUM 50 MG/SENNA 8.6 MG TAB PO SCH (09:00)
[2017-12-11] MEDS ORDERED: amLODIPine BESYLATE 5 MG TAB PO SCH (09:00)
[2017-12-11] MEDS: RIFAXIMIN 550 MG TAB PO SCH (09:01)
[2017-12-11] MEDS: LISINOPRIL 10 MG TAB PO SCH (09:01)
[2017-12-11] MEDS: SODIUM CHLORIDE 0.9% FLUSH 10 ML FLUSH IV FLUSH SCH (09:03)
--- NOTE | 2017-12-11 11:31 | HHI.PR ---
Subjective Remarks This is a 72-year-old male with a PMH of HTN, Hepatitis C and Cirrhosis who was referred to the ER by Urgent Care for evaluation of elevated BP. Per patient, he's had ongoing nightmares for several weeks and went to Urgent Care to get evaluated as he wants to start Prazosin. Pt noted to have BP 220's systolic and sent to ER. Does note some dizziness/lightheadedness today, but no chest pain, SOB, nausea, vomiting or diarrhea. On Lisinopril 10mg qd, reports compliance w/ medications. On arrival, BP 216/88, HR 55, O2 sat 95% RA, Temp 99.2. CBC essentially at baseline, platelets 99, previously 106 on 03/17/2016. Chemistry essentially at baseline. Troponin negative. Ammonia 53. INR 1.2. UA negative. CT Head with asymmetry of occipital horns of lateral ventricles, recommendation for MRI. MRI Brain with moderate periventricular white matter changes, no mass or edema, no acute findings. CXR negative. Placed on Cardene gtt in ER on arrival, BP currently 115/62, HR 55. No complaints at this time. 4-7 WILL NEED MEDICATIONS ADJUSTED DW RN AND PT AND CM INCREASE LISINOPRIL TO 10MG PO BID START NORVASC 5MG PO DAILY TODAY AM LABS IF STABLE DC NEXT 24 TO 48 HOURS 4-8 BLOOD PRESSURE IS BETTER DC TO HOME TODAY DW RN AND PT AND CM NEW RX WRITTEN NEEDS TO FIND NEW PCP Objective Vitals Vital Signs Date Time Temp Pulse Resp B/P (MAP) Pulse Ox O2 Delivery O2 Flow Rate FiO2 12/11/17 10:00 51 12/11/17 09:00 50 12/11/17 08:00 48 12/11/17 08:00 97.5 48 18 109/69 (82) 98 12/11/17 06:06 47 12/11/17 05:00 50 12/11/17 04:59 97.8 51 115/58 (77) 95 12/11/17 04:00 52 12/11/17 03:00 54 12/11/17 02:30 18 12/11/17 02:00 60 12/11/17 01:00 64 12/11/17 00:26 97.9 54 172/85 (114) 95 12/11/17 00:00 60 12/10/17 23:00 56 12/10/17 22:38 98.0 59 177/89 (118) 94 12/10/17 22:00 60 12/10/17 21:00 62 12/10/17 20:00 68 12/10/17 19:00 60 12/10/17 18:06 63 12/10/17 17:15 156/83 (107) 12/10/17 17:00 62 12/10/17 16:25 60 12/10/17 16:25 98.4 60 18 163/89 (113) 97 12/10/17 15:00 63 12/10/17 14:00 57 12/10/17 13:00 58 12/10/17 12:00 58 I/O 12/10/17 12/10/17 12/10/17 12/11/17 12/11/17 12/11/17 07:00 15:00 23:00 07:00 15:00 23:00 Intake Total 720 ml 960 ml 480 ml Output Total 400 ml 725 ml 1125 ml Balance 320 ml 235 ml -645 ml Intake Oral 720 ml 960 ml 480 ml Output Urine Total 400 ml 725 ml 1125 ml # Bowel Movements 3 Result Diagram: 12/11/17 0701 12/11/17 0701 Other Results Laboratory Tests Test 12/09/17 14:23 12/10/17 04:46 12/11/17 07:01 White Blood Count 5.7 TH/MM3 5.1 TH/MM3 7.0 TH/MM3 Red Blood Count 4.47 MIL/MM3 4.33 MIL/MM3 4.74 MIL/MM3 Hemoglobin 14.0 GM/DL 13.6 GM/DL 14.9 GM/DL Hematocrit 40.0 % 38.9 % 43.0 % Mean Corpuscular Volume 89.5 FL 89.7 FL 90.8 FL Mean Corpuscular Hemoglobin 31.3 PG 31.5 PG 31.5 PG Mean Corpuscular Hemoglobin Concent 35.0 % 35.1 % 34.7 % Red Cell Distribution Width 14.7 % 14.6 % 15.0 % Platelet Count 99 TH/MM3 79 TH/MM3 100 TH/MM3 Mean Platelet Volume 8.0 FL 8.4 FL 7.9 FL Neutrophils (%) (Auto) 70.0 % 64.3 % 80.3 % Lymphocytes (%) (Auto) 16.2 % 18.8 % 10.9 % Monocytes (%) (Auto) 6.4 % 6.2 % 5.5 % Eosinophils (%) (Auto) 7.1 % 7.7 % 2.5 % Basophils (%) (Auto) 0.3 % 3.0 % 0.8 % Neutrophils # (Auto) 4.0 TH/MM3 3.3 TH/MM3 5.6 TH/MM3 Lymphocytes # (Auto) 0.9 TH/MM3 1.0 TH/MM3 0.8 TH/MM3 Monocytes # (Auto) 0.4 TH/MM3 0.3 TH/MM3 0.4 TH/MM3 Eosinophils # (Auto) 0.4 TH/MM3 0.4 TH/MM3 0.2 TH/MM3 Basophils # (Auto) 0.0 TH/MM3 0.2 TH/MM3 0.1 TH/MM3 CBC Comment AUTO DIFF AUTO DIFF DIFF FINAL Differential Comment AUTO DIFF CONFIRMED AUTO DIFF CONFIRMED Platelet Estimate LOW Platelet Morphology Comment NORMAL Ovalocytes 1+ Prothrombin Time 12.0 SEC 12.1 SEC Prothromb Time International Ratio 1.2 RATIO 1.2 RATIO Activated Partial Thromboplast Time 27.6 SEC Urine Color YELLOW Urine Turbidity CLEAR Urine pH 5.5 Urine Specific [place] 1.020 Urine Protein TRACE mg/dL Urine Glucose (UA) NEG mg/dL Urine Ketones NEG mg/dL Urine Occult Blood SMALL Urine Nitrite NEG Urine Bilirubin NEG Urine Urobilinogen LESS THAN 2.0 MG/DL Urine Leukocyte Esterase NEG Urine RBC 1 /hpf Urine WBC LESS THAN 1 /hpf Urine Squamous Epithelial Cells <1 /hpf Urine Mucus FEW /lpf Microscopic Urinalysis Comment CULT NOT INDICATED Blood Urea Nitrogen 19 MG/DL 18 MG/DL 20 MG/DL Creatinine 0.96 MG/DL 0.84 MG/DL 0.98 MG/DL Random Glucose 188 MG/DL 106 MG/DL 161 MG/DL Total Protein 6.6 GM/DL 6.2 GM/DL 6.8 GM/DL Albumin 3.3 GM/DL 3.1 GM/DL 3.4 GM/DL Calcium Level 8.0 MG/DL 8.1 MG/DL 8.2 MG/DL Alkaline Phosphatase 124 U/L 120 U/L 126 U/L Aspartate Amino Transf (AST/SGOT) 55 U/L 52 U/L 42 U/L Alanine Aminotransferase (ALT/SGPT) 56 U/L 54 U/L 53 U/L Total Bilirubin 0.9 MG/DL 0.7 MG/DL 1.0 MG/DL Sodium Level 140 MEQ/L 142 MEQ/L 139 MEQ/L Potassium Level 3.7 MEQ/L 3.6 MEQ/L 3.8 MEQ/L Chloride Level 106 MEQ/L 109 MEQ/L 107 MEQ/L Carbon Dioxide Level 26.4 MEQ/L 25.2 MEQ/L 24.9 MEQ/L Anion Gap 8 MEQ/L 8 MEQ/L 7 MEQ/L Estimat Glomerular Filtration Rate 77 ML/MIN 90 ML/MIN 76 ML/MIN Ammonia 53 MCMOL/L 36 MCMOL/L Total Creatine Kinase 138 U/L Creatine Kinase MB 3.5 NG/ML Troponin I LESS THAN 0.02 NG/ML Acanthocytes OCC Phosphorus Level 3.3 MG/DL Magnesium Level 2.1 MG/DL Free Thyroxine 0.72 NG/DL Thyroid Stimulating Hormone 3rd Gen 2.600 uIU/ML Imaging Last Impressions Head CT 12/09/17 1409 Signed Impressions: Service Date/Time: Saturday, December 09, 2017 14:51 - CONCLUSION: 1. Asymmetry of the occipital horns of the lateral ventricles with a slitlike configuration on the right. While this may represent some physiologic asymmetry, this area would be in the expected location of the optic tracts and may affect vision if there is in fact pathologic regional edema. As such, I would recommend an MRI of the brain with and without gadolinium for further characterization of this area. 2. Chronic appearing pansinusitis with relative sparing of the left frontal sinus. Mati Bergeron MD Chest X-Ray 12/09/17 0000 Signed Impressions: Service Date/Time: Saturday, December 09, 2017 14:26 - CONCLUSION: The lungs are clear. Michael Johnson MD Brain MRI 12/09/17 0000 Signed Impressions: Service Date/Time: Saturday, December 09, 2017 17:45 - CONCLUSION: Moderate periventricular white matter changes otherwise negative for acute process. There is no mass or edema. Moderate bilateral maxillary sinus disease. Ruben Carter MD FACR Objective Remarks GENERAL: Awake alert and oriented 3 talkative and cooperative SKIN: Warm and dry. HEAD: Atraumatic. Normocephalic. EYES: Pupils equal and round. No scleral icterus. No injection or drainage. Extraocular muscles intact wearing glasses ENT: No nasal bleeding or discharge. Mucous membranes pink and moist. Tongue is midline NECK: Trachea midline. No JVD. Supple CARDIOVASCULAR: Regular rate and rhythm. S1-S2 no S3 or S4 RESPIRATORY: No accessory muscle use. Clear to auscultation. Breath sounds equal bilaterally. GASTROINTESTINAL: Abdomen soft, non-tender, nondistended. Hepatic and splenic margins not palpable. MUSCULOSKELETAL: Extremities without clubbing, cyanosis, or edema. No obvious deformities. NEUROLOGICAL: Awake and alert. No obvious cranial nerve deficits. Motor grossly within normal limits. Five out of 5 muscle strength in the arms and legs. Normal speech. PSYCHIATRIC: Appropriate mood and affect; insight and judgment normal. Procedures NONE Medications and IVs Current Medications Sodium Chloride (NS Flush) 2 ml UNSCH PRN IVF FLUSH AFTER USING IV ACCESS; Start 12/09/17 at 14:15; Stop 12/10/17 at 06:40; Status DC Nicardipine HCl 25 mg/Sodium Chloride 250 ml @ 50 mls/hr TITRATE PRN IV Blood pressure management Last administered on 12/09/17at 17:02; Start 12/09/17 at 16:00 ; Stop 12/09/17 at 19:49; Status DC Nicardipine HCl 25 mg/Sodium Chloride 250 ml @ 50 mls/hr TITRATE PRN IV BP > 200 SYSTOLIC; Start 12/09/17 at 19:45; Stop 12/09/17 at 19:57; Status DC Lactulose (Lactulose Liq) 30 ml QID PO ; Start 12/09/17 at 21:00 Sodium Chloride (NS Flush) 2 ml UNSCH PRN IV FLUSH FLUSH AFTER USING IV ACCESS ; Start 12/09/17 at 19:45 Sodium Chloride (NS Flush) 2 ml BID IV FLUSH Last administered on 12/11/17at 09: 03; Start 12/09/17 at 21:00 Ondansetron HCl (Zofran Inj) 4 mg Q6H PRN IVP NAUSEA OR VOMITING; Start at 19:45 Oxycodone HCl (Roxicodone) 10 mg Q4H PRN PO PAIN SCALE 6 TO 10 Last administered on 12/11/17at 01:15; Start 12/09/17 at 19:45 Oxycodone HCl (Roxicodone) 5 mg Q4H PRN PO PAIN SCALE 3 TO 5; Start 12/09/17 at 19:45 Senna/Docusate Sodium (Kasey-Colace) 1 tab BID PO ; Start 12/09/17 at 21:00 Magnesium Hydroxide (Milk Of Magnesia Liq) 30 ml Q12H PRN PO Mild constipation ; Start 12/09/17 at 19:45 Sennosides (Senokot) 17.2 mg Q12H PRN PO Moderate constipation; Start 12/09/17 at 19:45 Bisacodyl (Dulcolax Supp) 10 mg DAILY PRN RECTAL SEVERE CONSITIPATION; Start at 19:45 Lactulose (Lactulose Liq) 30 ml DAILY PRN PO SEVERE CONSITIPATION; Start at 19:45 Lisinopril (Prinivil) 10 mg DAILY PO Last administered on 12/10/17at 09:19; Start 12/10/17 at 09:00; Stop 12/10/17 at 12:49; Status DC Rifaximin (Xifaxan) 550 mg Q12HR PO Last administered on 12/11/17at 09:01; Start 12/09/17 at 21:00 Non-Formulary Medication 50 mg DAILY PO ; Start 12/10/17 at 09:00; Status UNV Gadodiamide (Omniscan Pf Inj) 14 ml STK-MED ONCE IVCONTRAST Last administered on 12/09/17at 21:01; Start 12/09/17 at 21:01; Stop 12/09/17 at 21:02; Status DC Hydralazine HCl (Apresoline Inj) 10 mg Q6H PRN IV PUSH SEE LABEL COMMENTS Last administered on 12/10/17at 23:46; Start 12/10/17 at 06:45 Lisinopril (Prinivil) 10 mg BID PO Last administered on 12/11/17at 09:01; Start 12/10/17 at 21:00 Amlodipine Besylate (Norvasc) 5 mg ONCE ONCE PO Last administered on 12/10/17at 13:35; Start 12/10/17 at 13:00; Stop 12/10/17 at 13:01; Status DC Amlodipine Besylate (Norvasc) 5 mg DAILY PO Last administered on 12/11/17at 09:02 ; Start 12/11/17 at 09:00 A/P Problem List: (1) Hypertensive urgency ICD Code: I16.0 - Hypertensive urgency (2) Cirrhosis ICD Code: K74.60 - Unspecified cirrhosis of liver (3) Thrombocytopenia ICD Code: D69.6 - Thrombocytopenia, unspecified Assessment and Plan 1. Hypertensive Urgency: BP 216/88, HR 55 on arrival, started on Cardene gtt in ER. On Lisinopril 10mg qd at home, reports compliance w/ medications. Wean off Cardene, resume home medications, monitor BP, add antihypertensives for persistently elevated BP. Caution w/ bradycardia. Pt inquiring about starting on Prazosin as h/o Nightmares, recommended starting as outpatient since dosage will need to be monitored closely and adjusted. INCREASE LISINOPRIL TO 10MG PO BID-- ADD NORVASC 5MG PO DAILY TODAY 2. Cirrhosis: Chronic. H/o Hepatitis C and h/o Alcohol Abuse. On Rifaximin. Ammonia 53, no mental status changes, will monitor. Lactulose as needed. 3. Thrombocytopenia: Acute on Chronic. Platelets 99, previously 106 on . No active bleeding at this time, will monitor closely. Repeat labs in am. 4. DVT Prophylaxis: SCD/Teds. 5. Social work for d/c planning as needed. Blood pressure stable discharged home today Discharge Planning Discharged home today Ruben Panchal DO Dec 11, 2017 11:31
[2017-12-11] MEDS ORDERED: AMLO5 PO (11:33)
[2017-12-11] MEDS ORDERED: XIFA550T4 PO (11:33)
[2017-12-11] MEDS ORDERED: LISI10TA3 PO (11:33)
--- NOTE | 2017-12-11 11:35 | HHI.DS ---
Discharge Summary Admission Date Dec 09, 2017 at 19:51 Discharge Date: Dec 11, 2017 Admitting Diagnosis hyperammonemia, hypertensive urgency (1) Hypertensive urgency ICD Code: I16.0 - Hypertensive urgency Diagnosis: Principal (2) Cirrhosis ICD Code: K74.60 - Unspecified cirrhosis of liver Diagnosis: Principal (3) Thrombocytopenia ICD Code: D69.6 - Thrombocytopenia, unspecified Diagnosis: Principal Procedures NONE Brief History - From Admission This is a 72-year-old male with a PMH of HTN, Hepatitis C and Cirrhosis who was referred to the ER by Urgent Care for evaluation of elevated BP. Per patient, he's had ongoing nightmares for several weeks and went to Urgent Care to get evaluated as he wants to start Prazosin. Pt noted to have BP 220's systolic and sent to ER. Does note some dizziness/lightheadedness today, but no chest pain, SOB, nausea, vomiting or diarrhea. On Lisinopril 10mg qd, reports compliance w/ medications. On arrival, BP 216/88, HR 55, O2 sat 95% RA, Temp 99.2. CBC essentially at baseline, platelets 99, previously 106 on 03/17/2016. Chemistry essentially at baseline. Troponin negative. Ammonia 53. INR 1.2. UA negative. CT Head with asymmetry of occipital horns of lateral ventricles, recommendation for MRI. MRI Brain with moderate periventricular white matter changes, no mass or edema, no acute findings. CXR negative. Placed on Cardene gtt in ER on arrival, BP currently 115/62, HR 55. No complaints at this time. CBC/BMP: 12/11/17 0701 12/11/17 0701 Significant Findings Laboratory Tests Test 12/09/17 14:23 12/10/17 04:46 12/11/17 07:01 Red Blood Count 4.47 MIL/MM3 (4.50-5.90) 4.33 MIL/MM3 (4.50-5.90) Platelet Count 99 TH/MM3 (150-450) 79 TH/MM3 (150-450) 100 TH/MM3 (150-450) Eosinophils (%) (Auto) 7.1 % (0.0-4.0) 7.7 % (0.0-4.0) Lymphocytes # (Auto) 0.9 TH/MM3 (1.0-4.8) 0.8 TH/MM3 (1.0-4.8) Platelet Estimate LOW (NORMAL) Ovalocytes 1+ (NORMAL) Prothrombin Time 12.0 SEC (9.8-11.6) 12.1 SEC (9.8-11.6) Urine Occult Blood SMALL (NEG) Urine Mucus FEW /lpf (OCC) Blood Urea Nitrogen 19 MG/DL (7-18) 20 MG/DL (7-18) Random Glucose 188 MG/DL (74-106) 161 MG/DL (74-106) Albumin 3.3 GM/DL (3.4-5.0) 3.1 GM/DL (3.4-5.0) Calcium Level 8.0 MG/DL (8.5-10.1) 8.1 MG/DL (8.5-10.1) 8.2 MG/DL (8.5-10.1) Alkaline Phosphatase 124 U/L (45-117) 120 U/L (45-117) 126 U/L (45-117) Aspartate Amino Transf (AST/SGOT) 55 U/L (15-37) 52 U/L (15-37) 42 U/L (15-37) Estimat Glomerular Filtration Rate 77 ML/MIN (>89) 76 ML/MIN (>89) Ammonia 53 MCMOL/L (11-32) 36 MCMOL/L (11-32) Troponin I LESS THAN 0.02 NG/ML Hematocrit 38.9 % (39.0-51.0) Basophils (%) (Auto) 3.0 % (0.0-2.0) Total Protein 6.2 GM/DL (6.4-8.2) Chloride Level 109 MEQ/L (98-107) Neutrophils (%) (Auto) 80.3 % (16.0-70.0) Free Thyroxine 0.72 NG/DL (0.76-1.46) Imaging Last Impressions Head CT 12/09/17 3977 Signed Impressions: Service Date/Time: Saturday, December 09, 2017 14:51 - CONCLUSION: 1. Asymmetry of the occipital horns of the lateral ventricles with a slitlike configuration on the right. While this may represent some physiologic asymmetry, this area would be in the expected location of the optic tracts and may affect vision if there is in fact pathologic regional edema. As such, I would recommend an MRI of the brain with and without gadolinium for further characterization of this area. 2. Chronic appearing pansinusitis with relative sparing of the left frontal sinus. Mati Bergeron MD Chest X-Ray 12/09/17 0000 Signed Impressions: Service Date/Time: Saturday, December 09, 2017 14:26 - CONCLUSION: The lungs are clear. Michael Johnson MD Brain MRI 12/09/17 0000 Signed Impressions: Service Date/Time: Saturday, December 09, 2017 17:45 - CONCLUSION: Moderate periventricular white matter changes otherwise negative for acute process. There is no mass or edema. Moderate bilateral maxillary sinus disease. Ruben Carter MD FACR PE at Discharge GENERAL: Awake alert and oriented 3 talkative and cooperative SKIN: Warm and dry. HEAD: Atraumatic. Normocephalic. EYES: Pupils equal and round. No scleral icterus. No injection or drainage. Extraocular muscles intact wearing glasses ENT: No nasal bleeding or discharge. Mucous membranes pink and moist. Tongue is midline NECK: Trachea midline. No JVD. Supple CARDIOVASCULAR: Regular rate and rhythm. S1-S2 no S3 or S4 RESPIRATORY: No accessory muscle use. Clear to auscultation. Breath sounds equal bilaterally. GASTROINTESTINAL: Abdomen soft, non-tender, nondistended. Hepatic and splenic margins not palpable. MUSCULOSKELETAL: Extremities without clubbing, cyanosis, or edema. No obvious deformities. NEUROLOGICAL: Awake and alert. No obvious cranial nerve deficits. Motor grossly within normal limits. Five out of 5 muscle strength in the arms and legs. Normal speech. PSYCHIATRIC: Appropriate mood and affect; insight and judgment normal. Hospital Course This is a 72-year-old male with a PMH of HTN, Hepatitis C and Cirrhosis who was referred to the ER by Urgent Care for evaluation of elevated BP. Per patient, he's had ongoing nightmares for several weeks and went to Urgent Care to get evaluated as he wants to start Prazosin. Pt noted to have BP 220's systolic and sent to ER. Does note some dizziness/lightheadedness today, but no chest pain, SOB, nausea, vomiting or diarrhea. On Lisinopril 10mg qd, reports compliance w/ medications. On arrival, BP 216/88, HR 55, O2 sat 95% RA, Temp 99.2. CBC essentially at baseline, platelets 99, previously 106 on 03/17/2016. Chemistry essentially at baseline. Troponin negative. Ammonia 53. INR 1.2. UA negative. CT Head with asymmetry of occipital horns of lateral ventricles, recommendation for MRI. MRI Brain with moderate periventricular white matter changes, no mass or edema, no acute findings. CXR negative. Placed on Cardene gtt in ER on arrival, BP currently 115/62, HR 55. No complaints at this time. 4-7 WILL NEED MEDICATIONS ADJUSTED DW RN AND PT AND CM INCREASE LISINOPRIL TO 10MG PO BID START NORVASC 5MG PO DAILY TODAY AM LABS IF STABLE DC NEXT 24 TO 48 HOURS 4-8 BLOOD PRESSURE IS BETTER DC TO HOME TODAY DW RN AND PT AND CM NEW RX WRITTEN NEEDS TO FIND NEW PCP Pt Condition on Discharge: Good Discharge Disposition: Discharge Home Discharge Time: <= 30 minutes Discharge Instructions DIET: Follow Instructions for: Heart Healthy Diet Speech Therapy-Diet Recommends: Regular Activities you can perform: Regular-No Restrictions Follow up Referrals: PCP Follow-up - 1 Week with Leigh Ann Gomez MD New Medications: Amlodipine (Norvasc) 5 Mg Tab 5 MG PO DAILY for Blood Pressure Management, #30 TAB Lisinopril (Lisinopril) 10 Mg Tab 10 MG PO BID for Blood Pressure Management, #60 TAB Continued Medications: Magnesium Oxide (Magox 400) 400 Mg Tablet Rifaximin (Xifaxan) 550 Mg Tab 550 MG PO Q12HR for Hepatic encephalopathy, #60 TAB 0 Refills (This prescription has been renewed) Zinc Gluconate (Zinc Gluconate) 50 Mg Tab 50 MG PO DAILY, TAB Discontinued Medications: Lisinopril (Lisinopril) 10 Mg Tab 10 MG PO DAILY, #30 TAB 0 Refills Ruben Panchal DO Dec 11, 2017 11:35
[2017-12-11 12:51] LABS: HEMOGLOBIN A1C 4.9 % (4.3-6.0)
== END 2017-12-11 17:17 | disposition home or self-care (01) | DRG 305 ==
LOC: NEPC 13:24 → NEDA 19:51 → HCIS 21:47
PROVIDERS: ADMIT Hospitalist; ATTEND Hospitalist
DX: I16.0 Hypertensive urgency (principal); D69.6 Thrombocytopenia, unspecified; K74.60 Unspecified cirrhosis of liver; I10 Essential (primary) hypertension; B19.20 Unspecified viral hepatitis C without hepatic coma
CPT/HCPCS: 70450; 70553; 71045; 80053; 81001; 82140; 82550; 82552; 83036; 83735; 84100; 84439; 84443; 84484; 85025; 85610; 85730; 93005; 96365; 96366; A9579; J0360; J7050